=== PATIENT | female | born 1980 | race Hispanic/Latino ===

== ENCOUNTER 2020-02-06 09:19 | Outpatient (CLI) | payer OTHER ==
--- NOTE | 2020-02-06 10:22 | XRay Report ---
CHEST 2 VIEWS INDICATION / CLINICAL INFORMATION: ACUTE URI J06.9. COMPARISON: None available. FINDINGS: SUPPORT DEVICES: None. HEART / MEDIASTINUM: No significant abnormality. LUNGS / PLEURA: No significant pulmonary or pleural abnormality. No pneumothorax. ADDITIONAL FINDINGS: No significant additional findings. IMPRESSION: 1. No acute findings. Signer Name: Mao Calero MD Signed: 02/06/2020 10:18 AM Workstation Name: [id number][id number]
== END 2020-02-06 09:20 | disposition home or self-care (01) ==
LOC: SPVIMAG 09:19
PROVIDERS: ATTEND Internal Medicine
DX: J06.9 Acute upper respiratory infection, unspecified (principal)
CPT/HCPCS: 71046